=== PATIENT | female | born 1995 | race Caucasian/White ===

== ENCOUNTER → 2018-04-28 | Outpatient (CLI) | payer BC ==
--- NOTE | 2018-04-28 12:42 | Diagnostic Imaging Report ---
Left breast ultrasound. Indication: Left breast mass. There are no prior studies available for comparison. The patient has a palpable abnormality in the 12 o'clock position of the left breast. The ultrasound examination of this area does show a well-circumscribed 1.1 x 0.6 x 1.2 cm solid mass. I suspect that this is a benign process such as a fibroadenoma. Reportedly, the patient has had another benign mass surgically removed from the right breast. There are no previous exams available for comparison however. If a tissue diagnosis of this lesion is desired, then ultrasound-guided biopsy would recommended. If there is no intervention at this time, then a short-term (6 month) followup ultrasound exam would be recommended. Impression: 1. There is a small solid mass in the area of the patient's palpable abnormality. Most likely this is a benign process. Recommendations as above. 2. These results were called to ALEX Jane's office at the [facility]. ACR BI-RADS Category 3: Probably benign findings. Dictated by: Dictated on workstation # [id number]
== END ==
LOC: RAD 09:08
PROVIDERS: ATTEND Nurse Practitioner Family
DX: N63.21 Unspecified lump in the left breast, upper outer quadrant (principal)
CPT/HCPCS: 76641